=== PATIENT | male | born 1965 | race African-American/Black ===

== ENCOUNTER 2025-01-19 11:35 | Emergency (ER) | payer OTHER ==
[~2025-01-19 11:35] MED LIST: Iopamidol 370 76% 100 ML VIAL ONE
[2025-01-19 12:23] LABS: #Basophils 0.04 10x3/uL (0.0-0.2); #Eosinophils 0.07 10x3/uL (0.0-0.5); #Monocytes 0.48 10x3/uL (0.0-1.1); #Neutrophils 4.13 10x3/uL (1.5-8.4); %Basophils 0.7 % (0.0-2.0); %Eosinophils 1.2 % (0.0-6.0); %Lymphocytes 21.2 % (18.0-47.0); %Monocytes 8.0 % (0.0-10.0); %Neutrophils 68.7 % (40.0-75.0); Hematocrit 41.8 % (38.8-50.0); Hemoglobin 13.5 g/dL (13.5-17.5); Mean Corpuscular Hemoglobin 28.5 pg (27.0-33.0); Mean Corpuscular Volume 88.4 fL (81.2-95.1); Platelet Count 202 10x3/uL (150-450); Red Blood Cell (RBC) Count 4.73 10x6/uL (4.32-5.72); White Blood Cell (WBC) Count 6.00 10x3/uL (3.5-10.5)
[2025-01-19 12:38] LABS: ALT (SGPT) 18 U/L (Less than 45); AST (SGOT) 24 U/L (11-34); Albumin 4.0 g/dL (3.1-4.5); Alkaline Phosphatase 59 U/L (40-110); Anion Gap 13 mmol/L (10-20); BUN (Urea Nitrogen) 20 mg/dL (8.4-25.7); Bilirubin, Total 0.8 mg/dL (0.3-1.2); Calc. Creatinine Clearance 0 mL/min (70-130); Calcium 9.4 mg/dL (7.8-10.44); Carbon Dioxide 24 mmol/L (23-31); Chloride 107 mmol/L (98-107); Globulin 2.7 g/dL (2.4-3.5); Glucose 96 mg/dL (80-115); Potassium 4.5 mmol/L (3.5-5.1); Sodium 139 mmol/L (136-145)
[2025-01-19 12:41] LABS: Troponin I Less than 0.010 ng/mL (< 0.028)
[2025-01-19 16:35] LABS: Troponin I Less than 0.010 ng/mL (< 0.028)
== END 2025-01-19 16:55 | disposition home or self-care (01) ==
LOC: CSHERS 11:35 → EEVIPCON 11:35 → CSHERS 16:55
DX: R07.89 Other chest pain (principal); R91.1 Solitary pulmonary nodule; I10 Essential (primary) hypertension
CPT/HCPCS: 36415; 71045; 71275; 74174; 80053; 84484; 85025; 93005